=== PATIENT | female | born 1985 | race Caucasian/White ===

== ENCOUNTER 2021-01-25 21:05 | Emergency (ER) | payer BC ==
[~2021-01-25] VITALS: Ht 167.6 cm; Wt 70.3 kg
--- NOTE | 2021-01-25 23:21 | NUR ---
Patient discharged to home in stable condition. Written and verbal after care instructions given. Patient verbalizes understanding of instruction.
[2021-01-25 23:22] VITALS: BP 128/85
== END 2021-01-25 23:22 | disposition home or self-care (01) ==
LOC: ER 21:05
DX: F41.9 Anxiety disorder, unspecified (principal); F32.9 Major depressive disorder, single episode, unspecified; R94.31 Abnormal electrocardiogram [ECG] [EKG]